=== PATIENT | male | born 1970 | race Caucasian/White ===

== ENCOUNTER 2018-03-15 19:24 | Emergency (ER) | payer MEDICAID ==
[~2018-03-15] VITALS: Ht 180.3 cm; Wt 84.6 kg
[~2018-03-15 19:24] MED LIST: BUPR150T13 PO; CITA20TA6 PO; HYDR25TA6 PO; LEVO50TA5 PO; LISI40TA PO; MAGN400T26 PO; METH10TA2 PO; METH40TA3 PO; METH5TAB2 PO; METO25TA35 PO; MIRT45TA61 PO; VENLAFAXINE XR 37.5MG CAP.ER.24H PO ONE; ZOLP10TA5 PO
[2018-03-15] MEDS ORDERED: LORazepam 1MG TABLET ONE (19:45)
[2018-03-15] MEDS ORDERED: LORazepam 1MG TABLET PO ONE (20:00)
[2018-03-15 20:16] VITALS: BP 160/94
--- NOTE | 2018-03-15 20:16 | NUR ---
PT STATES HE FEELS BETTER, VS IMPROVED. ERP NOTIFIED OF CHANGE IN PT CONDITION.
--- NOTE | 2018-03-15 20:54 | NUR ---
PT EDUCATED ON DISCHARGE INSTRUCTIONS, VERBALLY ACKNOWLEDGED UNDERSTANDING. PT AMBULATES WITH STEADY GAIT. PT SYMPTOMS IMPROVED AT THIS TIME.
== END 2018-03-15 20:55 | disposition home or self-care (01) ==
LOC: ED 20:41
DX: I10 Essential (primary) hypertension (principal); Z76.0 Encounter for issue of repeat prescription
CPT/HCPCS: 99284

== ENCOUNTER 2018-05-28 11:08 | Emergency (ER) | payer MEDICAID ==
[~2018-05-28] VITALS: Ht 180.3 cm; Wt 82.4 kg
[~2018-05-28 11:08] MED LIST changes: -VENLAFAXINE XR 37.5MG CAP.ER.24H PO ONE
[2018-05-28 11:13] VITALS: BP 169/115
[2018-05-28] MEDS ORDERED: LISINOPRIL 20 MG TABLET ONE (11:43)
[2018-05-28] MEDS ORDERED: METOPROLOL TARTRATE 25 MG TABLET ONE (11:43)
--- NOTE | 2018-05-28 11:47 | NUR ---
HCTZ needs to be ordered from pharmacy. Patient does not want to wait for meds. He states he will fill his rx today.
--- NOTE | 2018-05-28 11:59 | NUR ---
Patient/Caregiver given discharge instructions and they have confirmed that they understand the instructions. Patient ambulatory with steady gait.
[2018-05-28] MEDS ORDERED: METOPROLOL TARTRATE 50 MG TABLET PO ONE (12:00)
[2018-05-28] MEDS ORDERED: HYDROCHLOROTHIAZIDE 25 MG TABLET PO ONE (12:00)
[2018-05-28] MEDS ORDERED: LISINOPRIL 20 MG TABLET PO ONE (12:00)
== END 2018-05-28 12:10 | disposition home or self-care (01) ==
LOC: ED 12:04
DX: I10 Essential (primary) hypertension (principal); Z76.0 Encounter for issue of repeat prescription
CPT/HCPCS: 99283

== ENCOUNTER 2020-06-05 19:44 | Emergency (ER) | payer MEDICAID ==
[~2020-06-05] VITALS: Ht 180.3 cm; Wt 80.0 kg
[~2020-06-05 19:44] MED LIST changes: -LISI40TA PO; +LISI40TA9 PO
--- NOTE | 2020-06-05 19:57 | NUR ---
PT AMBULATORY C [facility] FROM HOME FOR EPISTAXIS. PT STATES ONSET 3 DAYS AGO, WORSE THIS AFTERNOON. PT STATES WHEN HE WAS HERE ~1.5 MONTHS AGO THE MD DECREASED HIS HTN MEDS FROM LISIOPRIL, HCTZ & LOPRESSOR TO JUST LISIOPRIL, AND SINCE THEN HES BEEN HAVING H/A, INTERMITTEN EPISTAXIS, AND CAN NOT PASS PHYSICAL D/T HTN. PT STATES HES ALSO BEEN SPREADING OUT HIS LISINOPRIL D/T NO PCP. PT C ACTIVE EPISTAXIS, NOSE CLAMP IN PLACE. TO BE SEEN, CALL LIGHT INREACH.
[2020-06-05] MEDS ORDERED: OXYMETAZOLINE NASAL SPRAY 0.05%,30ML ONE (20:52)
[2020-06-05] MEDS ORDERED: OXYMETAZOLINE NASAL SPRAY 0.05%,30ML NAS ONE (21:00)
--- NOTE | 2020-06-05 21:03 | NUR ---
BLEEDING CONTROLLED. MEDS PER MAY. TOLERATED WELL. WILL CTM.
[2020-06-05] MEDS ORDERED: HYDROCHLOROTHIAZIDE 25 MG TABLET PO ONE (21:30)
--- NOTE | 2020-06-05 21:34 | NUR ---
PT AWARE OF PLAN FOR ADDITIONAL MEDS, REQUESTED FROM PHARM.
[2020-06-05 22:05] VITALS: BP 133/86
== END 2020-06-05 22:07 | disposition home or self-care (01) ==
LOC: ED 21:37
DX: R04.0 Epistaxis (principal); I10 Essential (primary) hypertension
CPT/HCPCS: 99284